=== PATIENT | female | born 1955 | race Two or more races ===

== ENCOUNTER 2019-12-15 09:59 | Observation (INO) ==
--- NOTE | 2019-11-05 15:00 | PAT Medication Instructions ---
Medication Instructions Date of Service November 05, 2019 Home Medications calcium carbonate-vitamin D3 [Calcium 600 + D(3)] 1 tab PO QAM cholecalciferol (vitamin D3) [Vitamin D3] 25 mcg PO QAM ferrous sulfate [iron] 325 mg PO QAM nifedipine 20 mg PO QAM omeprazole 20 mg PO QAM PRN pravastatin 20 mg PO QAM DO NOT take the morning of surgery calcium carbonate-vitamin D3 [Calcium 600 + D(3)] 1 tab PO QAM cholecalciferol (vitamin D3) [Vitamin D3] 25 mcg PO QAM ferrous sulfate [iron] 325 mg PO QAM Take morning of surgery With a small sip of water, OTHERWISE NOTHING TO EAT OR DRINK AFTER MIDNIGHT: nifedipine 20 mg PO QAM omeprazole 20 mg PO QAM PRN pravastatin 20 mg PO QAM Other Notes If you have any questions please call us at [phone] or [phone] or [phone] or [phone]
--- NOTE | 2019-11-06 10:49 | Anesthesiology Consultation ---
Date of Service November 06, 2019 Assessment & Plan (1) Encounter for pre-operative examination: COVID Status: As of 11/05 assessment, patient denies travel to endemic area, known exposure/sick contacts, or symptoms of COVID19. Patient instructed to follow strict social distancing guidelines, wear a mask in public and avoid travel for 14 days prior to surgery. Preoperative COVID19 testing to be completed prior to surgery (12/09 at [facility]). Patient made aware to self-isolate as much as possible between COVID testing and surgery. Patient's primary language is [employer]. She declines use of translation services today as she is accompanied by her daughter, Johnathon. Patient able to understand basic commands, daughter assists with more detailed translation. Johnathon will also be present DOS to aid with translation. Chart Review Chart Review: Acceptable Risk for Surgery (pending pre op testing) and Patient seen in Pre Admission Testing Teaching & Discussion Instructed NPO after midnight before surgery, except medications with 15 cc of water. Medication instructions provided according to the PAT guidelines. History Surgery Operation Date: 12/15/19 08:35 Proposed Procedures p Right Total Knee Arthroplasty, Right Foot Injection with Cortisone Plantar Fas fani Tripathi DO Height/Weight Height: 5 ft Weight: 80.5 kg Allergies Allergy/AdvReac Type Severity Reaction Status Date / Time No Known Allergies Allergy Unverified 10/30/19 10:55 Medications Home Medications Medication Instructions Recorded Confirmed Last Taken calcium carbonate-vitamin D3 1 tab PO QAM 10/30/19 10/30/19 Unknown [Calcium 600 + D(3)] cholecalciferol (vitamin D3) 25 mcg PO QAM 10/30/19 10/30/19 Unknown [Vitamin D3] ferrous sulfate [iron] 325 mg PO QAM 10/30/19 10/30/19 Unknown nifedipine 20 mg PO QAM 10/30/19 10/30/19 Unknown omeprazole 20 mg PO QAM PRN 10/30/19 10/30/19 Unknown pravastatin 20 mg PO QAM 10/30/19 10/30/19 Unknown Past Medical History Medical History GERD (gastroesophageal reflux disease) Hyperlipidemia Hypertension Exercise / Class Metabolic Activity II 4-5 Yardwork/Stairs/Walk up hill (Denies CP or SOB with 1 FOS) Past Family History Family History Brother Diabetes Past Surgical History Surgical History Fusion of spine lumbar History of arthroscopy right knee History of tooth extraction Past Anesthesia History No Hx of Anesthesia Complications and No Family Hx of Anesthesia Complications History of PONV No Hx of PONV and No Hx of Motion Sickness Social History Smoking Status: Never smoker Do You Dip or Chew Tobacco: No Hx Alcohol Use: No Hx Substance Use: No substance use type: does not use Review of Systems Pt denies any recent chest pain, shortness of breath, palpitations, cough, fever or URI. Physical Exam Vital Signs BP: 105/66 P: 72bpm SPO2: 98% RA T: 97.8 F R: 16 Constitutional + obese ENMT Mouth: + dental restorations (silver caps on bottom R side) and + poor dentition; no chipped teeth and no loose teeth Thyromental Distance: > or= 3.5 Finger Breadths (4) Mallampati Class: II To have dental carlos extraction on 11/18. Daughter reports surgeon is aware. Neck normal visual inspection; neck extension not limited Respiratory normal respiratory effort Auscultation: lungs clear to auscultation bilaterally Cardiovascular Rate/Rhythm: regular rate and regular rhythm Heart Sounds: no murmur Vessels: no carotid bruit Extremities: no edema Testing Laboratory Results 11/06/19 11:02 11/06/19 11:02 PT 10.3 Seconds (9.0-12.0) 11/06/19 11:02 INR 1.0 (0.9-1.1) 11/06/19 11:02 APTT 35.2 Seconds (21.0-31.0) H 11/06/19 11:02 Hemoglobin A1c 5.6 % (4.5-5.6) 11/06/19 11:02 Urine Color Yellow 11/06/19 11:02 Urine Appearance Clear (Clear) 11/06/19 11:02 Urine pH 6.5 (4.5-7.5) 11/06/19 11:02 Ur Specific [place] 1.012 (1.000-1.030) 11/06/19 11:02 Urine Protein Negative (Negative) 11/06/19 11:02 Urine Glucose (UA) Negative (Negative) 11/06/19 11:02 Urine Ketones Negative (Negative) 11/06/19 11:02 Urine Nitrite Negative (Negative) 11/06/19 11:02 Ur Leukocyte Esterase Negative (Negative) 11/06/19 11:02 Blood Type O Positive 11/06/19 11:02 Antibody Screen NEGATIVE 11/06/19 11:02 re: mildly elevated PTT -- labs forwarded to PCP for their reference. Electrocardiogram Date: 11/06/19 Findings: + NSR @ (65bpm) No significant change from 09/28/11. Chest X-Ray Date: 11/06/19 Findings: + NAD
--- NOTE | 2019-11-06 11:31 | XRay Report ---
XR chest Pre-admission PA/Lat CLINICAL HISTORY: PAT COMPARISON STUDY: No previous studies for comparison. FINDINGS: The bones soft tissues and hemidiaphragms are normal. The cardiomediastinal silhouette is n ormal. The lungs are clear. The pulmonary vasculature is normal. IMPRESSION: Negative chest. ACT 112: Negative or not required by law. The above report was generated using voice recognition software. It may contain grammatical, syntax or spelling errors. Electronically signed by: Donell Motley M.D. 11/06/2019 11:29 AM
[2019-11-06 11:48] LABS: Appearance Urine Clear (Clear); Bilirubin Urine Negative (Negative); Blood Urine Negative (Negative); Color Urine Yellow; Glucose Urine UA Negative (Negative); Ketones Urine Negative (Negative); Leukocyte Esterase Urine Negative (Negative); Nitrite Urine Negative (Negative); Protein Urine Negative (Negative); Specific Gravity Urine 1.012 (1.000-1.030); Urobilinogen Urine Negative (Negative); pH Urine 6.5 (4.5-7.5)
[2019-11-06 11:54] LABS: Albumin Level 3.4 gm/dl (3.4-5.0); BUN Creatinine Ratio 12.9 (10-20); Creatinine Clr Calc Pharmacy 80.6 ml/min; Est GFR (African American) 108.7; Est GFR (Non-African American) 93.7; Potassium 4.1 mmol/L (3.5-5.1)
[2019-11-06 11:55] LABS: Basophils # (auto) 0.05 K/uL (0-0.2); Basophils % (auto) 0.7 %; Eosinophils # (auto) 0.13 K/uL (0-0.5); Eosinophils % (auto) 1.7 %; Hematocrit (blood only) 39.1 % (37-47); Hemoglobin 12.5 g/dL (12.0-16.0); Immature Granulocytes # (auto) 0.02 K/uL (0.00-0.02); Immature Granulocytes % (auto) 0.3 %; Lymphocytes # (auto) 2.03 K/uL (1.2-3.4); Lymphocytes % (auto) 26.7 %; Mean Corpuscular Hemoglobin 28.6 pg (25-34); Mean Corpuscular Volume 89.5 fL (80-100); Mean Platelet Volume 10.6 fL (7.4-10.4); Monocytes % (auto) 7.9 %; Neutrophils # (auto) 4.76 K/uL (1.4-6.5); Neutrophils % (auto) 62.7 %; Platelet Count 283 K/uL (130-400); RDW Standard Deviation 46.3 fL (36.4-46.3); Red Blood Count 4.37 M/uL (4.2-5.4); White Blood Count 7.59 K/uL (4.8-10.8)
[2019-11-06 11:56] LABS: Partial Thromboplastin Ratio 1.3; Partial Thromboplastin Time 35.2 Seconds (21.0-31.0); Prothrombin Time 10.3 Seconds (9.0-12.0)
[2019-11-06 12:26] LABS: Estimated Average Glucose 114 mg/dl; Hemoglobin A1C 5.6 % (4.5-5.6)
--- NOTE | 2019-11-07 07:22 | Electrocardiogram Report ---
Test Reason : Blood Pressure : / mmHG Vent. Rate : 065 BPM Atrial Rate : 065 BPM P-R Int : 154 ms QRS Dur : 096 ms QT Int : 406 ms P-R-T Axes : 065 078 050 degrees QTc Int : 422 ms Normal sinus rhythm Normal ECG When compared with ECG of 28-SEP-2011 11:23, No significant change was found Confirmed by Yasmani Tinoco ([id number]) on 11/07/2019 7:22:46 AM Referred By: David Tripathi Confirmed By:Yasmani Tinoco
--- NOTE | 2019-11-18 10:36 | History & Physical Report ---
Date of Service November 18, 2019 date of surgery: 12-15-19 Procedure: Right Total Knee Arthroplasty, Right Foot Injection with Cortisone Plantar Fascia Assessment & Plan (1) Arthritis of right knee: Further care discussed with patient and at this point in time has failed conservative measures and would like to proceed with Right Total Knee Arthroplasty, Right Foot Injection with Cortisone Plantar Fascia Plan on discharge will be home with home health physical therapy. DVT prophalaxis with T EDs, SCDs and will also place on aspirin 81 mg p.o. b.i.d. for a month postop. Patient will have follow up appointment in our office two weeks post op for staple/suture removal and re-evaluation. Patient otherwise has no other questions or concerns. (2) Plantar fasciitis, right: History of Present Illness Chief Complaint: Right knee pain, Right foot pain Primary Care Provider: Kyler Sommers Mrs Portillo is a 64 year old female who complains of Right knee and Right foot pain, presents for pre-op evaluation prior to a Right Total Knee Arthroplasty, Right Foot Injection with Cortisone Plantar Fascia at [facility]. She complains of pain, crepitus, decreased range of motion, instability and stiffness in the Right knee as well as pain in the posterior part of her foot. she states that the symptoms have been chronic and non-traumatic. she states that her symptoms occur constantly with intermittent worsening. Currently the patient states that the symptoms are moderate-severe. The pain is described as aching, sharp and throbbing. The symptoms occur continuously. The symptoms are aggravated by ascending stairs, daily activities, first steps while awake walking. Prior NSAIDs include Aleve and Voltaren. she has been treated with previous visco and cortisone injections in the knee in the past without much relief but has responded well to cortisone injections into the foot. Allergies Allergy/AdvReac Type Severity Reaction Status Date / Time No Known Allergies Allergy Unverified 10/30/19 10:55 Home Medications Home Medications Medication Instructions Recorded Confirmed Type calcium carbonate-vitamin D3 1 tab PO QAM 10/30/19 10/30/19 History [Calcium 600 + D(3)] cholecalciferol (vitamin D3) 25 mcg PO QAM 10/30/19 10/30/19 History [Vitamin D3] ferrous sulfate [iron] 325 mg PO QAM 10/30/19 10/30/19 History nifedipine 20 mg PO QAM 10/30/19 10/30/19 History omeprazole 20 mg PO QAM PRN 10/30/19 10/30/19 History pravastatin 20 mg PO QAM 10/30/19 10/30/19 History Past Med/Surg History Medical History GERD (gastroesophageal reflux disease) Hyperlipidemia Hypertension Surgical History Fusion of spine lumbar History of arthroscopy right knee History of tooth extraction Family History Brother Diabetes Social History Smoking Status: Never smoker Second Hand Exposure: No; Hx Alcohol Use: No Hx Substance Use: No Preferred Language: [place]man[place]eller[place] Communication Ability: Impaired Nodulizer Required: No Beliefs That Will Affect Care: None Current Living Situation: Family Feels Safe at Home: Yes Review of Systems Review of Systems: All systems reviewed & are unremarkable except as noted in HPI & below Constitutional: no fever, no chills and no sweats Respiratory: no cough and no dyspnea Cardiovascular: no chest pain, no dyspnea and no orthopnea Gastrointestinal: no abdominal pain, no nausea and no vomiting Musculoskeletal: as per Subjective / HPI Physical Exam Physical Exam: HT: 5ft WT: 80.5kg Constitutional: WD/WN, vitals as above no acute distress Respiratory: normal respiratory effort, lungs clear to auscultation no respiratory distress, no labored breathing and does not use accessory muscles Cardiovascular: RRR, no murmur, no edema Gastrointestinal (Abdomen): normal bowel sounds, soft, nontender, no hepatosplenomegaly Musculoskeletal: Knee: + knee abnormal to inspection (Right Knee), + effusion (+1 effusion), + limited ROM of knee (ROM 0/3/110), + knee ROM with crepitation, + joint line tenderness (medial joint line) and + Stacy's sign positive; no deformity, no skin erythema, no ecchymosis, no valgus laxity, no varus laxity, anterior drawer test negative, Divine's sign negative and pivot shift test negative Ankle: no effusion, no surgical incision and no crepitation with ankle ROM Right marine water tender along plantar fascia insertion Results & Data Results & Data ([facility]) Laboratory Results Laboratory Results WBC 7.59 K/uL (4.8-10.8) 11/06/19 11:02 RBC 4.37 M/uL (4.2-5.4) 11/06/19 11:02 Hgb 12.5 g/dL (12.0-16.0) 11/06/19 11:02 Hct 39.1 % (37-47) 11/06/19 11:02 MCV 89.5 fL (80-100) 11/06/19 11:02 MCH 28.6 pg (25-34) 11/06/19 11:02 MCHC 32.0 g/dL (32-36) 11/06/19 11:02 RDW Std Deviation 46.3 fL (36.4-46.3) 11/06/19 11:02 RDW Coeff of Narcisa 14.0 % (11.5-14.5) 11/06/19 11:02 Plt Count 283 K/uL (130-400) 11/06/19 11:02 MPV 10.6 fL (7.4-10.4) H 11/06/19 11:02 Immature Gran % (Auto) 0.3 % 11/06/19 11:02 Neut % (Auto) 62.7 % 11/06/19 11:02 Lymph % (Auto) 26.7 % 11/06/19 11:02 [place] % (Auto) 7.9 % 11/06/19 11:02 Eos % (Auto) 1.7 % 11/06/19 11:02 Baso % (Auto) 0.7 % 11/06/19 11:02 Neut # (Auto) 4.76 K/uL (1.4-6.5) 11/06/19 11:02 Lymph # (Auto) 2.03 K/uL (1.2-3.4) 11/06/19 11:02 [place] # (Auto) 0.60 K/uL (0.11-0.59) H 11/06/19 11:02 Eos # (Auto) 0.13 K/uL (0-0.5) 11/06/19 11:02 Baso # (Auto) 0.05 K/uL (0-0.2) 11/06/19 11:02 Immature Gran # (Auto) 0.02 K/uL (0.00-0.02) 11/06/19 11:02 PT 10.3 Seconds (9.0-12.0) 11/06/19 11:02 INR 1.0 (0.9-1.1) 11/06/19 11:02 APTT 35.2 Seconds (21.0-31.0) H 11/06/19 11:02 PTT Ratio 1.3 11/06/19 11:02 Sodium 144 mmol/L (136-145) 11/06/19 11:02 Potassium 4.1 mmol/L (3.5-5.1) 11/06/19 11:02 Chloride 113 mmol/L (98-107) H 11/06/19 11:02 Carbon Dioxide 26 mmol/L (21-32) 11/06/19 11:02 Anion Gap 5.0 (3-11) 11/06/19 11:02 BUN 9 mg/dl (7-18) 11/06/19 11:02 Creatinine 0.68 mg/dl (0.6-1.2) 11/06/19 11:02 Est Cr Clr Drug Dosing 80.6 ml/min 11/06/19 11:02 Est GFR ( Amer) 108.7 11/06/19 11:02 Est GFR (Non-Af Amer) 93.7 11/06/19 11:02 BUN/Creatinine Ratio 12.9 (10-20) 11/06/19 11:02 Glucose 94 mg/dl (70-99) 11/06/19 11:02 Estimat Average Glucose 114 mg/dl 11/06/19 11:02 Hemoglobin A1c 5.6 % (4.5-5.6) 11/06/19 11:02 Calcium 9.0 mg/dl (8.5-10.1) 11/06/19 11:02 Albumin 3.4 gm/dl (3.4-5.0) 11/06/19 11:02 Urine Color Yellow 11/06/19 11:02 Urine Appearance Clear (Clear) 11/06/19 11:02 Urine pH 6.5 (4.5-7.5) 11/06/19 11:02 Ur Specific [place] 1.012 (1.000-1.030) 11/06/19 11:02 Urine Protein Negative (Negative) 11/06/19 11:02 Urine Glucose (UA) Negative (Negative) 11/06/19 11:02 Urine Ketones Negative (Negative) 11/06/19 11:02 Urine Blood Negative (Negative) 11/06/19 11:02 Urine Nitrite Negative (Negative) 11/06/19 11:02 Urine Bilirubin Negative (Negative) 11/06/19 11:02 Urine Urobilinogen Negative (Negative) 11/06/19 11:02 Ur Leukocyte Esterase Negative (Negative) 11/06/19 11:02 Blood Type O Positive 11/06/19 11:02 Antibody Screen NEGATIVE 11/06/19 11:02 Diagnostic Findings Right Knee X-ray: Right knee series showing degenerative changes to the right knee, narrowing of the medial compartment and patello-femoral joint with patellar spurring noted, findings showing joint space narrowing of the medial compartment and patello- femoral joint, osteophyte formation and subchondral sclerosis noted. overall varus alignment. no acute bony pathology noted.
[~2019-12-15 09:59] MED LIST: ACETAMINOPHEN 500 MG TAB PO SCH; BUPIVACAINE 0.5 % 5 MG/1 ML PF 10ML VIAL ONE; CEFAZOLIN 2000MG 2,000 MG/15 ML SYR IV SCH; CeleBREX 200 MG CAP PO SCH; FAMOTIDINE 20 MG TAB PO SCH; GABAPENTIN 600 MG DOSE PO SCH; LR 500ML BOLUS, THEN 15ML/HR IV SCH; METOCLOPRAMIDE HCL 10 MG TABLET PO SCH; MIDAZOLAM HCL 1 MG/ML 2ML VIAL ONE; ROPIVACAINE 0.5% HCL/PF 150 MG, BUPIVACAINE 0.5% MPF 30 ML, EPINEPHrine 30MG/30ML (OR U... INSTIL SCH; TRANEXAMIC ACID 1,000 MG **IV Intra-op IV SCH; TRANEXAMIC ACID 1,000 MG **IV Pre-op IV SCH; dexAMETHasone 4 MG TAB PO SCH; fentaNYL citrate 100 MCG/2 ML VIAL ONE
[2019-12-15] MEDS ORDERED: BACITRACIN INJ 50,000 UNIT VIAL ONE (10:18)
[2019-12-15] MEDS ORDERED: ORTHO JOINT ANESTHETIC ONE (10:18)
[2019-12-15] MEDS ORDERED: TRIAMCINOLONE ACET 40 MG/ML VIAL ONE (10:19)
[2019-12-15] MEDS ORDERED: BUPIVACAINE 0.5 % 5 MG/1 ML MPF 30ML VIAL ONE (10:19)
--- NOTE | 2019-12-15 10:43 | History & Physical Bridge Note ---
Date of Service December 15, 2019 History & Physical Bridge Note I have examined the patient, reviewed the History & Physical and in the interval since the performance of the History & Physical I have noted the following changes of clinical significance: no changes noted
[2019-12-15] MEDS ORDERED: ATROPINE SULFATE 0.1 MG/ML 10ML SYR IV PRN (11:00)
[2019-12-15] MEDS ORDERED: fentaNYL citrate 100 MCG/2 ML VIAL IV PRN (11:00)
[2019-12-15] MEDS ORDERED: ONDANSETRON INJ 2 MG/ML 2 ML VIAL IV PRN ×2 (11:00→14:45)
[2019-12-15] MEDS ORDERED: ePHEDrine sulfate 50 MG/ML AMP IV PRN (11:00)
[2019-12-15] MEDS ORDERED: LIDOCAINE HCL 2% 2 ML VIAL/AMP(20MG/ML) INFIL ONE (11:44)
[2019-12-15] MEDS ORDERED: ONDANSETRON INJ 2 MG/ML 2 ML VIAL ONE (11:44)
[2019-12-15] MEDS ORDERED: PROPOFOL IV EMULSION 10 MG/ML 20 ML VIAL IV ONE (11:44)
--- NOTE | 2019-12-15 12:31 | Operative Report ---
Post Operative Report Pre & Post Diagnosis Operation Date: 12/15/19 11:25 Pre-Op Diagnosis: Right Knee Osteoarthritis Post-Op Diagnosis: Right Knee Osteoarthritis I identified the patient and participated in the time-out.: Yes Procedure Operation Date: 12/15/19 11:25 Actual Procedures p Right Total Knee Arthroplasty utilizing [employer] jourrobinson 2 patient matched total knee arthroplasty size 4 femur to tibia polyethylene 1329 oval patella; Right Foot Injection with 40 mg Kenalog 3 cc half percent plain Marcaine plantar Fascia(Right) - David Tripathi DO Surgeon David Tripathi DO Guest Service Supervisor Jonathon CAREY Estimated Blood Loss 5 Findings Consistent with Post-Op Diagnosis Patient resents severe end-stage DJD of the right knee with varus alignment marginal osteophytes subchondral sclerosis [id number] eburnated bone with a moderate to large effusion Specimens Bone and cartilage Drains Eating bore Hemovac Anesthesia Type MAC Spinal Regional Complications none Disposition Accompanied Patient To Recovery: No Disposition: Recovery Room Indications Patient presents after failing a conservative management of the right knee with a corticosteroid injections Visco supplementations relative rest activity modifications physical therapy patient the above intraoperative findings time surgery Description of Procedure After proper prepping and draping of the Right lower extremity anterior midline incision was made over the region of the extensor extensor mechanism after m eticulous hemostasis was obtained and maintained in subcutaneous tissues a medial parapatellar incision was made The patella was subluxed lateralward the medial lateral gutter were cleaned from any hypertrophic synovitis and scar tissue of the distal femoral block was placed and the distal femoral osteotomy cut was made subsequently the chamfers anterior and posterior osteotomy cuts were made utilizing the 4-in-1 block the tibia was subsequently subluxed anteriorward medial and ateral meniscal remnants were excised in their entirety remnants of the anterior and posterior cruciate ligaments were excised in their entirety excellent exposure of the proximal tibia was obtained the tibial osteotomy guide was placed on the proximal tibial osteotomy cut was made once again the knee was irrigated with copious amounts of sterile saline solution the patella was subsequently everted lateralward thickened scar tissue around the patella was removed the patella was subsequently cut utilizing a freehand technique and was drilled prepared for final preparation and placement of patella socially flexion-extension gaps were checked and the equal and symmetric trials were placed to the appropriate femoral and tibial trials with poly-spacer being placed for equal flexion and extension gaps and full range of motion including extension to 0 and flexion to 140 the trial components after having been taken to recovery range of motion was subsequently removed meticulous hemostasis was obtained and maintained subsequently a knee block injection of joint cocktail including ropivacaine 0.5% 150 mg. Bupivacaine 0.5% epinephrine 1-200,030 mL's toradol 30 mg dexamethasone 4 mg ketamine 10 mg clonidine 100 micrograms normal saline solution 30 mg was infiltrated into the soft tissues of the posterior knee medial lateral gutters and periosteal synovium special attention was paid to protect neurovascular structures at all times subsequently trial components having been removed the knee was irrigated with sterile saline solution. debris was removed the proximal tibia was subsequently prepared and was made ready for the placement of the tibial component tibial component was also cemented and tamped into position the femoral component was subsequently placed and cemented in the position the patellar component was subsequently cemented in position because hemostasis once again obtained and maintained wound having been thoroughly irrigated with debridement and debridement lavage was performed as well as a medial parapatellar incision closed with #1 Vicryl in interrupted fashion subcutaneous was closed with #2 Vicryl skin was closed with skin clips. PA-C was necessary for prepping and drapping as well as wound closure of deep fascia Sub cutaneous tissue and skin and was necessary for the case. A sterile compressive dressing was placed the plantar fascia was sterilely prepped on the plantar aspect of the heel of the right foot and subsequently 40 mg of Kenalog was injected with 3 cc of half percent plain Marcaine into the plantar fascial insertion patient was taken to recovery in stable condition of report dictated by Deuce I attest to the content of the Intraoperative Record and any orders documented therein. Any exceptions are noted below. I attest to the content of the Intraoperative Record and any orders documented therein. Any exceptions are noted below.
--- NOTE | 2019-12-15 13:35 | Anesthesiology Progress Note ---
Date of Service December 15, 2019 Anesthesia Post Procedure Vital Signs Vital Signs: Temp Pulse Pulse Resp BP Pulse Ox 12/15/19 13:25 74 15 118/81 97 12/15/19 13:17 97.3 F L 77 16 107/62 98 12/15/19 10:42 97.3 F L 76 18 143/87 H 98 Transfer of Care Handoff Completed per policy Notes Mental Status: alert / awake / arousable and participated in evaluation Patient Amnestic to Procedure: Yes Nausea / Vomiting: adequately controlled Pain: adequately controlled Airway Patency, RR, SpO2: stable & adequate BP & HR: stable & adequate Hydration State: stable & adequate Neuraxial Anesthesia: was administered and sensory block is resolving Anesthetic Complications: no major complications apparent and Pt Satisfied with anesthetic care
--- NOTE | 2019-12-15 13:36 | XRay Report ---
XR knee RT 1 or 2V routine HISTORY: 64 years-old Female Surgical Post Op right knee total joint arthroplasty COMPARISON: None TECHNIQUE: 2 views of the right knee FINDINGS: Right knee total joint arthroplasty and patella resurfacing. Expected postsurgical soft tissue swelli ng and deep tissue air with surgical drainage catheter. Arterial calcifications. IMPRESSION: Right knee total joint arthroplasty and patella resurfacing with expected postoperative c hanges. ACT 112: Negative or not required by law. The above report was generated using voice recognition software. It may contain grammatical, syntax o r spelling errors. Electronically signed by: Ariel Fitzpatrick M.D. 12/15/2019 1:35 PM
[2019-12-15] MEDS ORDERED: PANTOprazole 40 MG TAB PO PRN (14:35)
[2019-12-15] MEDS ORDERED: MAGNESIUM HYDROXIDE SUSP 30 ML UDC PO PRN (14:45)
[2019-12-15] MEDS ORDERED: SODIUM CHLORIDE 0.9% 1000ML 1,000 ML IV SCH (14:45)
[2019-12-15] MEDS ORDERED: HYDROmorphone INJ 0.5 MG/0.5 ML SYR IV PRN (14:45)
[2019-12-15] MEDS ORDERED: NALOXONE HCL 0.4 MG/1 ML VIAL/CARP IV PRN (14:45)
[2019-12-15] MEDS ORDERED: bisacodyL 10 MG SUPP PR PRN (14:45)
[2019-12-15] MEDS: ACETAMINOPHEN 500 MG TAB PO SCH ×2 (15:41→21:27)
[2019-12-15] MEDS: FERROUS GLUCONATE 324 MG TAB PO SCH (17:09)
[2019-12-15] MEDS: CEFAZOLIN 2000MG 2,000 MG/15 ML SYR IV SCH (18:31)
[2019-12-15] MEDS ORDERED: SENNA 8.6 MG TAB PO SCH (21:00)
[2019-12-15] MEDS: DOCUSATE SODIUM 100 MG CAP PO SCH (21:27)
[2019-12-15] MEDS: ASPIRIN 81 MG ECTAB PO SCH (21:27)
[2019-12-16] MEDS: CEFAZOLIN 2000MG 2,000 MG/15 ML SYR IV SCH (03:36)
[2019-12-16] MEDS: OXYCODONE HCL IR 5 MG TAB (IMMEDIATE RELEASE) PO PRN ×2 (03:50→10:56)
[2019-12-16] MEDS: ACETAMINOPHEN 500 MG TAB PO SCH (05:29)
[2019-12-16 05:53] LABS: Hematocrit (blood only) 35.2 % (37-47); Hemoglobin 11.3 g/dL (12.0-16.0); Mean Corpuscular Hemoglobin 27.9 pg (25-34); Mean Corpuscular Hgb Conc 32.1 g/dL (32-36); Mean Corpuscular Volume 86.9 fL (80-100); Mean Platelet Volume 10.6 fL (7.4-10.4); Platelet Count 239 K/uL (130-400); RDW Coefficient of Variation 13.4 % (11.5-14.5); Red Blood Count 4.05 M/uL (4.2-5.4); White Blood Count 20.82 K/uL (4.8-10.8)
[2019-12-16 06:21] LABS: Calcium 8.1 mg/dl (8.5-10.1); Creatinine Clr Calc Pharmacy 78.3 ml/min; Est GFR (African American) 107.6; Est GFR (Non-African American) 92.9
[2019-12-16] MEDS: FERROUS GLUCONATE 324 MG TAB PO SCH (08:10)
[2019-12-16] MEDS: ASPIRIN 81 MG ECTAB PO SCH (08:10)
[2019-12-16] MEDS: DOCUSATE SODIUM 100 MG CAP PO SCH (08:10)
[2019-12-16] MEDS ORDERED: NIFEdipine 10 MG CAP PO SCH (09:00)
[2019-12-16] MEDS ORDERED: PRAVASTATIN SOD 20 MG TAB PO SCH (09:00)
[2019-12-16] MEDS ORDERED: MULTIVITAMIN TAB PO SCH (09:00)
--- NOTE | 2019-12-16 09:28 | Orthopedic Progress Note ---
Date of Service December 16, 2019 Assessment & Plan (1) History of total right knee replacement: POD #1 s/p Right TKA pt/ot dvt proph with PB/SCD/ASA plan for d/c home with HHPT when stable, likely on Admission and Anticipated Discharge Date Admission Date: December 15, 2019 Subjective POD #1 s/p Right TKA Review of Systems Constitutional: no fever, no chills and no sweats Respiratory: no cough and no dyspnea Cardiovascular: no chest pain and no dyspnea Gastrointestinal: no abdominal pain, no nausea and no vomiting Physical Exam Physical Exam: Vital Signs Temp 36.6 C 12/16/19 07:13 Pulse 58 L 12/16/19 07:13 Resp 16 12/16/19 07:13 BP 130/73 12/16/19 07:13 Pulse Ox 99 12/16/19 07:13 Intake & Output 12/15/19 12/16/19 12/16/19 18:59 06:59 18:59 Intake Total 1500 / 2620.000 1120.000 / 2620.00 0 Output Total 505 / 555 50 / 555 Balance 995 / 2065.000 1070.000 / 2065.00 0 Weight 80.5 kg Intake: IV 800 / 1796.854 5418.000 / 1800.00 0 Lr 1,000 ml @ 15 mls/hr IV . 600 / [address] [facility] Rx#:[id number] Nss 1000ML 1,0 00 ml @ 100 mls/ 1000.000 / 1000.00 0 hr IV .Q10H [facility] Rx#:[id number] TRANEXAMIC ACI D / 0.7% NACL 1, 200 / 200 000 mg In 100 ml @ 600 mls/hr IV TODAY@0600 [facility] Rx#:[id number] IV Perioperative 700 / 700 Oral 120 / 120 Output: Urine 500 / 500 Estimated Blood Loss 5 / 5 Drain Output 50 / 50 Right Knee 50 / 50 Other: # Unmeasured Voi ds 1 1 Constitutional: WD/WN, vitals as above no acute distress Musculoskeletal: Right Leg: NVDI, calf SNT, negative thuan sign. DP palpable, able to wiggle toes/ankle movement without difficulty. dressing clean dry and intact. Results & Data ([facility]) Vital Signs (Past 12 Hours) Vital Signs Temp Pulse Resp BP Pulse Ox 12/16/19 07:13 36.6 C 58 L 16 130/73 99 12/16/19 04:03 36.6 C 83 16 114/74 98 12/16/19 00:16 36.3 C L 73 16 118/72 97 Laboratory Results Laboratory Results WBC 20.82 K/uL (4.8-10.8) H 12/16/19 05:37 RBC 4.05 M/uL (4.2-5.4) L 12/16/19 05:37 Hgb 11.3 g/dL (12.0-16.0) L 12/16/19 05:37 Hct 35.2 % (37-47) L 12/16/19 05:37 MCV 86.9 fL (80-100) 12/16/19 05:37 MCH 27.9 pg (25-34) 12/16/19 05:37 MCHC 32.1 g/dL (32-36) 12/16/19 05:37 RDW Std Deviation 43.0 fL (36.4-46.3) 12/16/19 05:37 RDW Coeff of Narcisa 13.4 % (11.5-14.5) 12/16/19 05:37 Plt Count 239 K/uL (130-400) 12/16/19 05:37 MPV 10.6 fL (7.4-10.4) H 12/16/19 05:37 Immature Gran % (Auto) 0.3 % 11/06/19 11:02 Neut % (Auto) 62.7 % 11/06/19 11:02 Lymph % (Auto) 26.7 % 11/06/19 11:02 Mcintosh % (Auto) 7.9 % 11/06/19 11:02 Eos % (Auto) 1.7 % 11/06/19 11:02 Baso % (Auto) 0.7 % 11/06/19 11:02 Neut # (Auto) 4.76 K/uL (1.4-6.5) 11/06/19 11:02 Lymph # (Auto) 2.03 K/uL (1.2-3.4) 11/06/19 11:02 Mcintosh # (Auto) 0.60 K/uL (0.11-0.59) H 11/06/19 11:02 Eos # (Auto) 0.13 K/uL (0-0.5) 11/06/19 11:02 Baso # (Auto) 0.05 K/uL (0-0.2) 11/06/19 11:02 Immature Gran # (Auto) 0.02 K/uL (0.00-0.02) 11/06/19 11:02 PT 10.3 Seconds (9.0-12.0) 11/06/19 11:02 INR 1.0 (0.9-1.1) 11/06/19 11:02 APTT 35.2 Seconds (21.0-31.0) H 11/06/19 11:02 PTT Ratio 1.3 11/06/19 11:02 Sodium 141 mmol/L (136-145) 12/16/19 05:37 Potassium 4.0 mmol/L (3.5-5.1) 12/16/19 05:37 Chloride 114 mmol/L (98-107) H 12/16/19 05:37 Carbon Dioxide 21 mmol/L (21-32) 12/16/19 05:37 Anion Gap 6.0 (3-11) 12/16/19 05:37 BUN 13 mg/dl (7-18) 12/16/19 05:37 Creatinine 0.70 mg/dl (0.6-1.2) 12/16/19 05:37 Est Cr Clr Drug Dosing 78.3 ml/min 12/16/19 05:37 Est GFR ( Amer) 107.6 12/16/19 05:37 Est GFR (Non-Af Amer) 92.9 12/16/19 05:37 BUN/Creatinine Ratio 18.0 (10-20) 12/16/19 05:37 Glucose 135 mg/dl (70-99) H 12/16/19 05:37 Estimat Average Glucose 114 mg/dl 11/06/19 11:02 Hemoglobin A1c 5.6 % (4.5-5.6) 11/06/19 11:02 Calcium 8.1 mg/dl (8.5-10.1) L 12/16/19 05:37 Albumin 3.4 gm/dl (3.4-5.0) 11/06/19 11:02 Urine Color Yellow 11/06/19 11:02 Urine Appearance Clear (Clear) 11/06/19 11:02 Urine pH 6.5 (4.5-7.5) 11/06/19 11:02 Ur Specific [place] 1.012 (1.000-1.030) 11/06/19 11:02 Urine Protein Negative (Negative) 11/06/19 11:02 Urine Glucose (UA) Negative (Negative) 11/06/19 11:02 Urine Ketones Negative (Negative) 11/06/19 11:02 Urine Blood Negative (Negative) 11/06/19 11:02 Urine Nitrite Negative (Negative) 11/06/19 11:02 Urine Bilirubin Negative (Negative) 11/06/19 11:02 Urine Urobilinogen Negative (Negative) 11/06/19 11:02 Ur Leukocyte Esterase Negative (Negative) 11/06/19 11:02 Blood Type O Positive 11/06/19 11:02 Antibody Screen NEGATIVE 11/06/19 11:02 Diagnostic Findings XR knee RT 1 or 2V routine HISTORY: 64 years-old Female Surgical Post Op right knee total joint arthroplasty COMPARISON: None TECHNIQUE: 2 views of the right knee FINDINGS: Right knee total joint arthroplasty and patella resurfacing. Expected postsurgical soft tissue swelling and deep tissue air with surgical drainage catheter. Arterial calcifications. IMPRESSION: Right knee total joint arthroplasty and patella resurfacing with expected postoperative changes.
--- NOTE | 2019-12-19 15:48 | Discharge Summary ---
Date of Service December 19, 2019 Admission HPI Per Admitting Provider Mrs Portillo is a 64 year old female who complains of Right knee and Right foot pain, presents for pre-op evaluation prior to a Right Total Knee Arthroplasty, Right Foot Injection with Cortisone Plantar Fascia at [facility]. She complains of pain, crepitus, decreased range of motion, instability and stiffness in the Right knee as well as pain in the posterior part of her foot. she states that the symptoms have been chronic and non-traumatic. she states that her symptoms occur constantly with intermittent worsening. Currently the patient states that the symptoms are moderate-severe. The pain is described as aching, sharp and throbbing. The symptoms occur continuously. The symptoms are aggravated by ascending stairs, daily activities, first steps while awake walking. Prior NSAIDs include Aleve and Voltaren. she has been treated with previous visco and cortisone injections in the knee in the past without much relief but has responded well to cortisone injections into the foot. Admission Exam Per Admitting Provider Physical Exam: HT: 5ft WT: 80.5kg Constitutional: WD/WN, vitals as above no acute distress Respiratory: normal respiratory effort, lungs clear to auscultation no respiratory distress, no labored breathing and does not use accessory muscles Cardiovascular: RRR, no murmur, no edema Gastrointestinal (Abdomen): normal bowel sounds, soft, nontender, no hepatosplenomegaly Musculoskeletal: Knee: + knee abnormal to inspection (Right Knee), + effusion (+1 effusion), + limited ROM of knee (ROM 0/3/110), + knee ROM with crepitation, + joint line tenderness (medial joint line) and + Stacy's sign positive; no deformity, no skin erythema, no ecchymosis, no valgus laxity, no varus laxity, anterior drawer test negative, Divine's sign negative and pivot shift test negative Ankle: no effusion, no surgical incision and no crepitation with ankle ROM 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 Principal Diagnosis Right Knee Djd Discharge Data Allergies Allergy/AdvReac Type Severity Reaction Status Date / Time No Known Allergies Allergy Verified 12/15/19 10:45 Consultations 12/15/19 14:31 Consult Case Management - Discharge Planning Routine Procedures Performed Operation Date: 12/15/19 11:25 Actual Procedures p Right Total Knee Arthroplasty; (Right) - David Vargas DO s Right Foot Injection with Cortisone Plantar Fascia(Right) - David Vargas DO Ordered Studies 12/15/19 05:00 US - OR guided needle placemen Routine Hospital Course (1) Arthritis of right knee: Addendum (Blank) Addendum patient rechecked with dr vargas, would like to be discharged today, her drain output was 50 cc/ 8 hours, her pain is well controlled. stable for d/c today with HHPT December 16, 2019 11:56 Addendum Signed By: <Electronically signed by Donell Lowery PA-C>12/16/191156 Addendum Cosigned By:<Electronically signed by David Vargas DO>12/16/19 1235 Created: 12/16/19 Date of Service December 16, 2019 Assessment & Plan (1) History of total right knee replacement: POD #1 s/p Right TKA pt/ot dvt proph with PB/SCD/ASA plan for d/c home with HHPT when stable, likely on Admission and Anticipated Discharge Date Admission Date: December 15, 2019 Subjective POD #1 s/p Right TKA Review of Systems Constitutional: no fever, no chills and no sweats Respiratory: no cough and no dyspnea Cardiovascular: no chest pain and no dyspnea Gastrointestinal: no abdominal pain, no nausea and no vomiting Physical Exam Physical Exam: Vital Signs Temp 36.6 C 12/16/19 07:13 Pulse 58 L 12/16/19 07:13 Resp 16 12/16/19 07:13 BP 130/73 12/16/19 07:13 Pulse Ox 99 12/16/19 07:13 Intake & Output 12/15/19 12/16/19 12/16/19 18:59 06:59 18:59 Intake Total 1500 / 2620.000 1120.000 / 2620.00 0 Output Total 505 / 555 50 / 555 Balance 995 / 2065.000 1070.000 / 2065.00 0 Weight 80.5 kg Intake: IV 800 / 2715.313 6533.000 / 1800.00 0 Lr 1,000 ml @ 15 mls/hr IV . 600 / 600 Q24H [facility] Rx#:[id number] Nss 1000ML 1,0 00 ml @ 100 mls/ 1000.000 / 1000.00 0 hr IV .Q10H [facility] Rx#:[id number] TRANEXAMIC ACI D / 0.7% NACL 1, 200 / 200 000 mg In 100 ml @ 600 mls/hr IV TODAY@0600 [facility] Rx#:[id number] IV Perioperative 700 / 700 Oral 120 / 120 Output: Urine 500 / 500 Estimated Blood Loss 5 / 5 Drain Output 50 / 50 Right Knee 50 / 50 Other: # Unmeasured Voi ds 1 1 Constitutional: WD/WN, vitals as above no acute distress Musculoskeletal: Right Leg: NVDI, calf SNT, negative thuan sign. DP palpable, able to wiggle toes/ankle movement without difficulty. dressing clean dry and intact. Results & Data ([facility]) Vital Signs (Past 12 Hours) Vital Signs Temp Pulse Resp BP Pulse Ox 12/16/19 07:13 36.6 C 58 L 16 130/73 99 12/16/19 04:03 36.6 C 83 16 114/74 98 12/16/19 00:16 36.3 C L 73 16 118/72 97 Laboratory Results Laboratory Results WBC 20.82 K/uL (4.8-10.8) H 12/16/19 05:37 RBC 4.05 M/uL (4.2-5.4) L 12/16/19 05:37 Hgb 11.3 g/dL (12.0-16.0) L 12/16/19 05:37 Total Time Total Time Spent Total Time Spent (In Minutes): 5 Discharge Plan Discharge Items Patient Disposition: Home - Home Health Services Reason For Visit: RIGHT KNEE OSTEOARTHRITIS Discharge Diagnosis: Right knee osteoarthritis Condition on Discharge: Good Activity: Per Instructions section Lifting: Wait until after follow-up appointment Weightbearing: Right weightbearing Weightbearing Comment: As tolerated with a walker Non-emergency contact: Surgeon Call non-emergency contact if: your pain is not controlled, your temperature is above 101.5, your wound has increased redness and your wound has increased drainage Follow-up/Referrals: Kyler Sommers [Primary Care Provider] - Diet: Regular Addtl Attending Provider Instructions: ACTIVITY RECOMMENDATIONS: SELF CARE INSTRUCTIONS AFTER TOTAL KNEE REPLACEMENT A. You may need to continue a physical therapy program after discharge from the hospital. There are several options available to you. Your doctor will assist you in selecting the best one for you. 1. An out-patient facility 2 to 3 times a week for therapy or home therapy. 2. Continue working on all exercises taught to you in the hospital. Your goals should be to increase bending of your knee to 90 degrees and beyond and to fully straighten your knee. B. You may progress at your own pace from walking with a walker or crutches to a cane; then to no assistive devices. C. Make walking a part of your daily routine. Be up as much as comfortable with rest periods throughout the day. Rest with leg elevation is very important. Use the ice wrap frequently for the first 3-4 weeks. D. There are no restrictions on activities. You may ride in a car, shop, participate in automation engineer and all social activities. E. Wear the long elastic stockings (PB hose) 20 hours a day for 2 weeks after surgery. They can be removed several times a day for laundering and for a bath. F. You may shower, no tub baths until cleared by your doctor. SPECIAL CARE INSTRUCTIONS: VERY IMPORTANT TO READ AND REVIEW A. There are a few signs you need to watch for after you are home. Call [facility] [place] if you notice any of the followin. Increased severe knee pain. Some pain is expected especially when you exercise. 2. Increased swelling in your leg or knee; pain or swelling of the calf muscle in either lower leg. 3. Any fluid drainage from the incision. 4. Shortness of breath or chest pain. B. Please call [facility] at if you have any concerns or questions about your operation or recovery. The doctor or his nurse will return your call promptly. C. You must take antibiotics before dental work, bladder, bowel or other surgery. Your doctor will provide you with a permanent care to carry describing this precaution. IMPORTANT: * REMEMBER TO TAKE ASPIRIN, 81 MG, TWICE DAILY FOR 4 WEEKS UNLESS OTHERWISE DIRECTED. THIS IS YOUR BLOOD THINNER. * HIGH RISK PATIENTS MAY BE PRESCRIBED A STRONGER BLOOD THINNER. THIS WILL BE PROVIDED AT DISCHARGE. * CALL IF INCREASED PAIN, REDNESS, DRAINAGE OR FEVER GREATER THAT 101. * WEAR PB HOSE 20 HOURS PER DAY FOR 2 WEEKS. * DERMABOND Prineo- This is a mesh tape dressing that is covered with glue. It should remain in place until the incision is properly healed, usually 10-14 days. This dressing is designed to naturally slough off. You may trim the excess mesh tape as it peels off. Incision may be briefly wet in a shower. Dry immediately by blotting with a clean, dry towel. Do not bath or swim until instructed by your doctor. Do not scratch, rub, or pick at the dressing. Do not apply any topical ointments or lotions until dressing is completely removed and/or instructed by your doctor. There may be a small piece of suture material at one end of your incision. Do not pull or trim this. If it is bothersome or catching on clothing, you may cover it with a band-aid. . FOLLOW UP VISIT: If appointment is not already scheduled: Please call [facility] [place] to make a follow-up appointment for 2 weeks after your surgery at . Pending Studies at Discharge: No Stand-Alone Forms: [facility] [place], Smoking Cessation Medications and DC Order Prescriptions: New aspirin 81 mg Tablet,Delayed Release (Dr/Ec) 81 mg PO BID 30 Days Qty: 60 RF: 0 acetaminophen 500 mg Tablet 1,000 mg PO Q8 21 Days Qty: 126 RF: 0 oxycodone 5 mg Tablet 5 - 10 mg PO Q6H PRN (Reason: pain) Qty: 30 RF: 0 docusate sodium 100 mg Capsule 100 mg PO BID 10 Days Qty: 20 RF: 0 cefadroxil 500 mg capsule 500 mg PO BID 10 Days Qty: 20 RF: 0 Continued nifedipine 20 mg Capsule 20 mg PO QAM RF: 0 calcium carbonate-vitamin D3 [Calcium 600 + D(3)] 600 mg(1,500mg) -200 unit Tablet 1 tab PO QAM RF: 0 ferrous sulfate [iron] 325 mg (65 mg iron) Tablet 325 mg PO QAM RF: 0 pravastatin 20 mg Tablet 20 mg PO QAM RF: 0 cholecalciferol (vitamin D3) [Vitamin D3] 25 mcg (1,000 unit) Capsule 25 mcg PO QAM RF: 0 omeprazole 20 mg Tablet,Disintegrat, Delay Rel 20 mg PO QAM PRN (Reason: Heartburn) RF: 0 Discharge Orders: Discharge Order (Routine); Ordered 12/16/19 Ordered By: Donell Lowery Admission Data Admit Date/Time: 12/15/19 13:21 Attending Provider: David Vargas Admit Provider: David Vargas Primary Care Provider: Kyler Sommers Other Providers: Sander Hall Other Interventions: Discharge Summary Assessment (RN) Last Done: 12/16/19 13:37
== END 2019-12-16 14:34 | disposition home health service (06) ==
LOC: 3E 09:59 → ASU 09:59